=== PATIENT | female | born 1990 | race Caucasian/White ===

== ENCOUNTER 2016-04-05 22:59 | Inpatient (IN) | payer OTHER ==
[~2016-04-05] VITALS: Ht 149.9 cm; Wt 49.7 kg
[~2016-04-05 22:59] MED LIST: ADVIL,NUPRIN,M200 MG PO; AMOXICILLI400 MG/5 M; AMOXICILLIN500 MG PO; BACTRIM,SEPT1 TABLET PO; CIPRO500 MG PO; CLARITIN-D 121 EACH PO; CLONIDINE HCL0.1 MG PO; CONSTULOSE10 GM/15 M PO; FLAGYL500 MG PO; FLEXERIL10 MG PO; FLINTSTONES GU1 EACH PO; FLINTSTONES1 EACH PO; Flintstones PO; KEFLEX500 MG PO; KLONOPIN1 MG PO; MACROBID100 MG PO; MIRALAX17 GM PO; MOBIC7.5 MG PO; MOTRIN600 MG PO; MOTRIN800 MG PO; NAPROSYN500 MG PO; NAPROXEN500 MG PO; ONDANSETRON HCL4 M1; OXYCODONE-APAP1 EACH; PEPCID AC20 MG PO; PERCOCET 5/31 TABLET PO; PROZAC WEEKLY 990 MG PO; PYRIDIUM100 MG PO; PYRIDIUM200 MG PO; Prefera-OB Plus DHA PO; TESSALON PERLE100 MG PO; TRAMADOL HCL50 MG PO; TRAZODONE HCL50 MG PO; TYLENOL325 M1 PO; ULTRAM50 MG PO; UNISOM50 MG PO; ZITHROMAX250 MG PO; ZOFRAN ODT4 MG PO; ZOFRAN4 MG PO; ~No Medications
[2016-04-05 23:25] LABS: HEMATOCRIT 38.1 % (36.0-46.0); MCH 29.8 PG (29.0-34.0); MCHC 34.1 G/DL (30.0-36.0); MCV 87.4 FL (83-99); MEAN PLAT.VOLUME 9.1 uM^3 (9.5-12.4); PLATELET COUNT 386 K/uL (156-360); RBC DIS.WIDTH-CV 12.5 % (11.8-14.6); RBC DIS.WIDTH-SD 38.8 % (39-53); RED BLOOD COUNT 4.36 M/uL (3.80-5.20); WHITE BLOOD COUNT 8.9 K/uL (4.1-10.2)
[2016-04-05 23:32] LABS: CHLORIDE 105 mEq/L (99-109); POTASSIUM 3.6 mEq/L (3.7-5.4); SODIUM 141 mEq/L (136-147)
[2016-04-05 23:34] LABS: GLUCOSE 73 mg/dL (70-99)
[2016-04-05 23:36] LABS: ANION GAP 8 MEQ/L (2-14)
[2016-04-05 23:37] LABS: SERUM ETHYL ALCOHOL < 10 mg/dL
[2016-04-05 23:38] LABS: GFR ESTIMATE (CALCULATED) > 59 mL/min/
[2016-04-05 23:39] LABS: UREA NITROGEN (BUN) 10 mg/dL (9-23)
[2016-04-05 23:59] LABS: AMPHETAMINE NEGATIVE (500 ng/mL); COCAINE PRESUMPTIVE POSITIVE (150 ng/mL); METHAMPHETAMINE NEGATIVE (500 ng/mL); OPIATES (MORPHINE) PRESUMPTIVE POSITIVE (100 ng/mL); PHENCYCLIDINE NEGATIVE (25 ng/mL); THC CANNABINOIDS NEGATIVE (50 ng/mL)
[2016-04-06] LABS: ADD MEDTOX COMMENT Y; BARBITURATES NEGATIVE (200 ng/mL); BENZODIAZEPINES PRESUMPTIVE POSITIVE (150 ng/mL); INTERNAL CONTROLS VALID? YES; METHADONE NEGATIVE (200 ng/mL); OXYCODONE PRESUMPTIVE POSITIVE (100 ng/mL); PROPOXYPHENE NEGATIVE (300 ng/mL); TRICYCLIC ANTIDEPRESSANTS NEGATIVE (300 ng/mL)
[2016-04-06] MEDS ORDERED: CLONAZEPAM0.5 MG PO (00:39)
[2016-04-06] MEDS ORDERED: CITALOPRAM HBR10 MG PO (00:39)
[2016-04-06 01:52] VITALS: BP 123/84
[2016-04-06 02:02] LABS: BENZODIAZEPINES, URINE SCREEN POSITIVE (200 ng/mL)
[2016-04-06] MEDS ORDERED: CLEOCIN300 MG PO (06:34)
[2016-04-06 07:44] VITALS: BP 124/57
[2016-04-06 15:26] VITALS: BP 86/42
[2016-04-06 18:22] VITALS: BP 100/54
[2016-04-07 07:44] VITALS: BP 99/58
[2016-04-07 15:19] VITALS: BP 88/43
[2016-04-08 07:50] VITALS: BP 102/53
[2016-04-08 15:59] VITALS: BP 96/45
[2016-04-09 07:39] VITALS: BP 101/54
[2016-04-09] MEDS ORDERED: PROZAC10 MG PO (11:48)
== END 2016-04-09 13:08 | disposition home or self-care (01) | DRG 881 ==
LOC: EME 22:59 → 1WEST 04-06 00:29 → EDOF 04-06 00:29 → 1WEST 04-06 01:44
PROC: HZ2ZZZZ Detoxification Services for Substance Abuse Treatment (ICD-10-PCS; principal; 2016-04-06)
DX: F32.9 Major depressive disorder, single episode, unspecified (principal); R45.851 Suicidal ideations; F11.23 Opioid dependence with withdrawal; F14.10 Cocaine abuse, uncomplicated; E78.5 Hyperlipidemia, unspecified
CPT/HCPCS: 80048; 84999; 85027; 90839; 97150 GO; 97165 GO; 99281; 99284; G0480; J0574; Q0177

== ENCOUNTER 2016-08-31 07:47 | Emergency (ER) | payer OTHER ==
[~2016-08-31] VITALS: Ht 149.9 cm; Wt 58.8 kg
[~2016-08-31 07:47] MED LIST changes: +CITALOPRAM HBR10 MG PO; +CLEOCIN300 MG PO; +CLONAZEPAM0.5 MG PO; +PROZAC10 MG PO
[2016-08-31 08:47] LABS: HEMATOCRIT 34.8 % (36.0-46.0); MCH 29.7 PG (29.0-34.0); MCHC 34.5 G/DL (30.0-36.0); MCV 86.1 FL (83-99); MEAN PLAT.VOLUME 8.9 uM^3 (9.5-12.4); PLATELET COUNT 339 K/uL (156-360); RBC DIS.WIDTH-CV 12.4 % (11.8-14.6); RBC DIS.WIDTH-SD 39.3 % (39-53); RED BLOOD COUNT 4.04 M/uL (3.80-5.20); WHITE BLOOD COUNT 15.9 K/uL (4.1-10.2)
[2016-08-31 08:51] LABS: CHLORIDE 108 mEq/L (99-109); POTASSIUM 4.1 mEq/L (3.7-5.4); SODIUM 137 mEq/L (136-147)
[2016-08-31 08:54] LABS: ANION GAP 7 MEQ/L (2-14)
[2016-08-31 08:55] LABS: TOTAL BILIRUBIN 0.4 mg/dL (0.0-1.0)
[2016-08-31 08:56] LABS: ALKALINE PHOSPHATASE 89 IU/L (3-129)
[2016-08-31 08:57] LABS: GFR ESTIMATE (CALCULATED) > 59 mL/min/
[2016-08-31 08:58] LABS: UREA NITROGEN (BUN) 15 mg/dL (9-23)
[2016-08-31 09:00] LABS: LIPASE 4 U/L (1.0-51.0)
[2016-08-31 09:06] LABS: QUANTITATIVE HCG < 4.0 MIU/ML
[2016-08-31 09:11] LABS: GLUCOSE 113 mg/dL (70-99)
[2016-08-31 09:30] LABS: ADD MIUA? YES; BILIRUBIN NEGATIVE; BLOOD MODERATE; COLOR YELLOW ((YELLOW)); GLUCOSE (STRIP) NEGATIVE; KETONES NEGATIVE; LEUKOCYTES NEGATIVE; NITRITE NEGATIVE; PROTEIN (STRIP) 30; UROBILINOGEN 0.2 MG/DL (0.2-1.0)
[2016-08-31 09:37] LABS: BACTERIA RARE /HPF; EPITHELIAL CELLS RARE /HPF; HYALINE CASTS 0-5 /LPF; MUCUS 2+ /LPF; RED BLOOD CELLS 0-5 /HPF (0-5); UCUL ADDED? NO; WHITE BLOOD CELLS 0-5 /HPF (0-5)
[2016-08-31] MEDS ORDERED: ULTRAM50 MG PO (11:54)
[2016-08-31] MEDS ORDERED: ZOFRAN ODT4 MG PO (11:54)
[2016-08-31] MEDS ORDERED: MACROBID100 MG PO (11:54)
[2016-08-31 12:10] VITALS: BP 122/57
== END 2016-08-31 12:11 | disposition home or self-care (01) ==
LOC: EME 07:47
PROVIDERS: Nurse Practitioner Family
DX: N39.0 Urinary tract infection, site not specified (principal); D72.829 Elevated white blood cell count, unspecified; N94.89 Other specified conditions associated with female genital organs and menstrual cycle; E78.5 Hyperlipidemia, unspecified
CPT/HCPCS: 74177; 80053; 81003; 83690; 84702; 85027; 87086; 99281; 99284; J1885; J2405; J7030

== ENCOUNTER 2016-10-26 13:33 | Emergency (ER) | payer OTHER ==
[~2016-10-26] VITALS: Ht 149.9 cm; Wt 60.6 kg
[2016-10-26 14:24] VITALS: BP 118/85
== END 2016-10-26 14:25 | disposition home or self-care (01) ==
LOC: EME 13:33
DX: H11.32 Conjunctival hemorrhage, left eye (principal)
CPT/HCPCS: 99281; 99283

== ENCOUNTER 2016-12-01 14:44 | Emergency (ER) | payer OTHER ==
[2016-12-01] MEDS ORDERED: ZOFRAN ODT4 MG PO (22:40)
== END 2016-12-01 15:07 | disposition left against medical advice (07) ==
LOC: EME 14:44
DX: O26.891 Other specified pregnancy related conditions, first trimester (principal); R10.9 Unspecified abdominal pain; Z3A.01 Less than 8 weeks gestation of pregnancy; Z53.21 Procedure and treatment not carried out due to patient leaving prior to being seen by health care provider

== ENCOUNTER 2016-12-01 17:55 | Emergency (ER) | payer OTHER ==
[~2016-12-01] VITALS: Ht 149.9 cm; Wt 58.0 kg
[2016-12-01 19:46] LABS: HEMATOCRIT 40.1 % (36.0-46.0); MCH 28.1 PG (29.0-34.0); MCHC 33.4 G/DL (30.0-36.0); MCV 84.1 FL (83-99); MEAN PLAT.VOLUME 8.9 uM^3 (9.5-12.4); PLATELET COUNT 367 K/uL (156-360); RBC DIS.WIDTH-CV 13.3 % (11.8-14.6); RBC DIS.WIDTH-SD 41.2 % (39-53); RED BLOOD COUNT 4.77 M/uL (3.80-5.20); WHITE BLOOD COUNT 7.1 K/uL (4.1-10.2)
[2016-12-01 19:54] LABS: CHLORIDE 109 mEq/L (99-109); POTASSIUM 3.9 mEq/L (3.7-5.4); SODIUM 140 mEq/L (136-147)
[2016-12-01 19:56] LABS: GLUCOSE 106 mg/dL (70-99)
[2016-12-01 19:58] LABS: ANION GAP 9 MEQ/L (2-14); TOTAL BILIRUBIN 0.5 mg/dL (0.0-1.0)
[2016-12-01 20:00] LABS: ALKALINE PHOSPHATASE 93 IU/L (3-129); GFR ESTIMATE (CALCULATED) > 59 mL/min/
[2016-12-01 20:00] LABS: ADD MIUA? YES; BILIRUBIN NEGATIVE; BLOOD NEGATIVE; COLOR YELLOW ((YELLOW)); GLUCOSE (STRIP) NEGATIVE; KETONES NEGATIVE; LEUKOCYTES NEGATIVE; NITRITE NEGATIVE; PROTEIN (STRIP) 30; SPECIFIC GRAVITY 1.034 (1.000-1.030); UROBILINOGEN 0.2 MG/DL (0.2-1.0)
[2016-12-01 20:01] LABS: UREA NITROGEN (BUN) 14 mg/dL (9-23)
[2016-12-01 20:05] LABS: BACTERIA RARE /HPF; EPITHELIAL CELLS 1+ /HPF; MUCUS 2+ /LPF; RED BLOOD CELLS 0-5 /HPF (0-5); UCUL ADDED? NO; WHITE BLOOD CELLS 0-5 /HPF (0-5)
[2016-12-01 20:09] LABS: QUANTITATIVE HCG 116.2 MIU/ML
[2016-12-01 20:16] LABS: AMPHETAMINE NEGATIVE (500 ng/mL); BARBITURATES NEGATIVE (200 ng/mL); BENZODIAZEPINES NEGATIVE (150 ng/mL); COCAINE NEGATIVE (150 ng/mL); INTERNAL CONTROLS VALID? YES; METHADONE NEGATIVE (200 ng/mL); METHAMPHETAMINE NEGATIVE (500 ng/mL); OPIATES (MORPHINE) NEGATIVE (100 ng/mL); OXYCODONE NEGATIVE (100 ng/mL); PHENCYCLIDINE NEGATIVE (25 ng/mL); PROPOXYPHENE NEGATIVE (300 ng/mL); THC CANNABINOIDS NEGATIVE (50 ng/mL); TRICYCLIC ANTIDEPRESSANTS NEGATIVE (300 ng/mL)
[2016-12-01] MEDS ORDERED: ZOFRAN ODT4 MG PO (22:40)
[2016-12-01 22:41] VITALS: BP 117/69
== END 2016-12-01 22:42 | disposition home or self-care (01) ==
LOC: EME 17:55
PROVIDERS: Nurse Practitioner Family
DX: O26.891 Other specified pregnancy related conditions, first trimester (principal); R10.2 Pelvic and perineal pain; E78.5 Hyperlipidemia, unspecified
CPT/HCPCS: 76801; 80053; 81003; 84702; 85027; 99281; 99283

== ENCOUNTER 2016-12-31 14:06 | Emergency (ER) | payer OTHER ==
[~2016-12-31] VITALS: Ht 149.9 cm; Wt 60.3 kg
[2016-12-31 15:18] LABS: HEMATOCRIT 35.4 % (36.0-46.0); MCH 28.5 PG (29.0-34.0); MCHC 33.6 G/DL (30.0-36.0); MCV 84.7 FL (83-99); RBC DIS.WIDTH-CV 13.7 % (11.8-14.6); RBC DIS.WIDTH-SD 42.9 % (39-53); RED BLOOD COUNT 4.18 M/uL (3.80-5.20); WHITE BLOOD COUNT 8.9 K/uL (4.1-10.2)
[2016-12-31 15:24] LABS: CHLORIDE 105 mEq/L (99-109); POTASSIUM 3.6 mEq/L (3.7-5.4); SODIUM 138 mEq/L (136-147)
[2016-12-31 15:26] LABS: GLUCOSE 102 mg/dL (70-99)
[2016-12-31 15:27] LABS: ANION GAP 8 MEQ/L (2-14)
[2016-12-31 15:28] LABS: TOTAL BILIRUBIN 0.8 mg/dL (0.0-1.0)
[2016-12-31 15:30] LABS: ALKALINE PHOSPHATASE 77 IU/L (3-129); GFR ESTIMATE (CALCULATED) > 59 mL/min/
[2016-12-31 15:31] LABS: UREA NITROGEN (BUN) 8 mg/dL (9-23)
[2016-12-31 15:50] LABS: ADD MIUA? YES; BILIRUBIN NEGATIVE; BLOOD NEGATIVE; COLOR AMBER ((YELLOW)); GLUCOSE (STRIP) NEGATIVE; KETONES 20; LEUKOCYTES NEGATIVE; NITRITE NEGATIVE; PROTEIN (STRIP) 100; SPECIFIC GRAVITY 1.034 (1.000-1.030); UROBILINOGEN 0.2 MG/DL (0.2-1.0)
[2016-12-31 16:11] LABS: QUANTITATIVE HCG 161014.9 MIU/ML
[2016-12-31 16:30] LABS: BACTERIA 1+ /HPF; EPITHELIAL CELLS 3+ /HPF; MUCUS 4+ /LPF; RED BLOOD CELLS 0-5 /HPF (0-5); UCUL ADDED? NO; WHITE BLOOD CELLS 0-5 /HPF (0-5)
[2016-12-31 17:03] LABS: MEAN PLAT.VOLUME 8.8 uM^3 (9.5-12.4); PLAT.SUFFICIENCY ADEQUATE
[2016-12-31 17:14] LABS: PLATELET COUNT 248 K/uL (156-360)
[2016-12-31] MEDS ORDERED: ZOFRAN ODT4 MG PO (18:15)
[2016-12-31 18:28] VITALS: BP 117/65
== END 2016-12-31 18:30 | disposition home or self-care (01) ==
LOC: EME 14:06
DX: O21.9 Vomiting of pregnancy, unspecified (principal); Z3A.01 Less than 8 weeks gestation of pregnancy; E78.5 Hyperlipidemia, unspecified; F32.9 Major depressive disorder, single episode, unspecified
CPT/HCPCS: 80053; 81003; 84702; 85027; 99281; 99284; J2405; J7030

== ENCOUNTER 2017-05-18 12:26 | Emergency (ER) | payer OTHER ==
[~2017-05-18] VITALS: Ht 149.9 cm; Wt 66.4 kg
[2017-05-18 14:33] LABS: CHLORIDE 100 MEQ/L (99-109); POTASSIUM 3.5 MEQ/L (3.7-5.4); SODIUM 134 MEQ/L (136-147)
[2017-05-18 14:39] LABS: CREATININE 0.5 MG/DL (0.6-1.3); GFR ESTIMATE (CALCULATED) > 59 mL/min/; GLUCOSE 68 mg/dL (70-99); UREA NITROGEN (BUN) 5 mg/dL (9-23)
[2017-05-18 15:27] LABS: APPEARANCE SL.HAZY ((CLEAR)); BILIRUBIN NEGATIVE; BLOOD NEGATIVE; COLOR AMBER ((YELLOW)); GLUCOSE (STRIP) NEGATIVE; KETONES NEGATIVE; LEUKOCYTES NEGATIVE; NITRITE NEGATIVE; PROTEIN (STRIP) 30; SPECIFIC GRAVITY 1.021 (1.000-1.030)
[2017-05-18 15:41] LABS: BACTERIA RARE /HPF; EPITHELIAL CELLS RARE /HPF; MUCUS 2+ /LPF; RED BLOOD CELLS 0-5 /HPF (0-5); WHITE BLOOD CELLS 0-5 /HPF (0-5)
[2017-05-18] MEDS ORDERED: ZOFRAN ODT4 MG PO (15:58)
[2017-05-18 16:13] VITALS: BP 110/70
== END 2017-05-18 16:15 | disposition home or self-care (01) ==
LOC: EME 12:26
PROVIDERS: Physician Assistant
DX: O21.2 Late vomiting of pregnancy (principal); Z3A.27 27 weeks gestation of pregnancy; O99.512 Diseases of the respiratory system complicating pregnancy, second trimester; J34.89 Other specified disorders of nose and nasal sinuses; J02.9 Acute pharyngitis, unspecified; R10.9 Unspecified abdominal pain; O26.892 Other specified pregnancy related conditions, second trimester; O99.342 Other mental disorders complicating pregnancy, second trimester; F32.9 Major depressive disorder, single episode, unspecified; E78.5 Hyperlipidemia, unspecified
CPT/HCPCS: 80048; 81003; 99281; 99284; J7030

== ENCOUNTER 2017-06-29 01:59 | Inpatient (IN) | payer OTHER ==
[2017-06-29] VITALS (43 sets, daily range): BP systolic 76–138; BP diastolic 39–87
[~2017-06-29] VITALS: Ht 149.9 cm; Wt 68.5 kg
[2017-06-29 02:58] LABS: BASOPHIL (%) 0.2 % (0-1); EOSINOPHIL (%) 0.5 % (0-5); EOSINOPHIL COUNT 0.1 K/uL (0-0.3); HEMATOCRIT 30.2 % (36.0-46.0); HEMOGLOBIN 10.3 G/DL (11.9-15.5); IMMATURE GRANULOCYTE (%) 0.9 % (0.0-0.7); LYMPHOCYTE (%) 10.6 % (15-42); LYMPHOCYTE COUNT 1.4 K/uL (1.0-2.8); MCH 29.7 PG (29.0-34.0); MCHC 34.1 G/DL (30.0-36.0); MONOCYTE (%) 6.2 % (3-12); MONOCYTE COUNT 0.8 K/uL (0-0.8); NEUTROPHIL (%) 81.6 % (45-76); NEUTROPHIL COUNT 10.9 K/uL (1.8-6.4); PLATELET COUNT 248 K/uL (156-360); RBC DIS.WIDTH-CV 14.8 % (11.8-14.6); RBC DIS.WIDTH-SD 47.4 % (39-53); RED BLOOD COUNT 3.47 M/uL (3.80-5.20); WHITE BLOOD COUNT 13.4 K/uL (4.1-10.2)
[2017-06-29 03:28] LABS: AMPHETAMINE NEGATIVE (500 ng/mL); BARBITURATES NEGATIVE (200 ng/mL); BENZODIAZEPINES PRESUMPTIVE POSITIVE (150 ng/mL); BUPRENORPHINE PRESUMPTIVE POSITIVE (10 ng/mL); COCAINE PRESUMPTIVE POSITIVE (150 ng/mL); METHADONE NEGATIVE (200 ng/mL); METHAMPHETAMINE NEGATIVE (500 ng/mL); OPIATES (MORPHINE) NEGATIVE (100 ng/mL); OXYCODONE PRESUMPTIVE POSITIVE (100 ng/mL); PHENCYCLIDINE NEGATIVE (25 ng/mL); PROPOXYPHENE NEGATIVE (300 ng/mL); THC CANNABINOIDS NEGATIVE (50 ng/mL); TRICYCLIC ANTIDEPRESSANTS NEGATIVE (300 ng/mL)
[2017-06-29 03:53] LABS: BENZODIAZEPINES, URINE SCREEN POSITIVE (200 ng/mL)
[2017-06-29 06:57] LABS: BASOPHIL (%) 0.3 % (0-1); EOSINOPHIL (%) 0.2 % (0-5); HEMATOCRIT 28.4 % (36.0-46.0); HEMOGLOBIN 9.3 G/DL (11.9-15.5); IMMATURE GRANULOCYTE (%) 1.5 % (0.0-0.7); LYMPHOCYTE (%) 8.9 % (15-42); MCH 28.9 PG (29.0-34.0); MCHC 32.7 G/DL (30.0-36.0); MCV 88.2 FL (83-99); MONOCYTE (%) 2.7 % (3-12); MONOCYTE COUNT 0.3 K/uL (0-0.8); NEUTROPHIL (%) 86.4 % (45-76); NEUTROPHIL COUNT 9.2 K/uL (1.8-6.4); PLATELET COUNT 230 K/uL (156-360); RBC DIS.WIDTH-SD 48.1 % (39-53); RED BLOOD COUNT 3.22 M/uL (3.80-5.20); WHITE BLOOD COUNT 10.7 K/uL (4.1-10.2)
[2017-06-29 07:08] LABS: FIBRINOGEN 253 mg/dL (150-450)
[2017-06-29 07:10] LABS: PTT 24.2 SEC (25-37)
[2017-06-29 07:23] LABS: ALBUMIN 2.5 G/DL (3.2-4.8); ALKALINE PHOSPHATASE 174 IU/L (3-129); ALT (GPT) 110 IU/L (3-49); AST (GOT) 127 IU/L (2-34); CHLORIDE 101 MEQ/L (99-109); CREATININE 0.6 MG/DL (0.6-1.3); GFR ESTIMATE (CALCULATED) > 59 mL/min/; GLUCOSE 108 mg/dL (70-99); POTASSIUM 4.3 MEQ/L (3.7-5.4); SODIUM 131 MEQ/L (136-147); TOTAL PROTEIN 5.5 G/DL (6.4-8.3); UREA NITROGEN (BUN) 6 mg/dL (9-23)
[2017-06-29 12:46] LABS: BASOPHIL (%) 0.1 % (0-1); EOSINOPHIL (%) 0 % (0-5); HEMATOCRIT 28.3 % (36.0-46.0); HEMOGLOBIN 9.5 G/DL (11.9-15.5); IMMATURE GRANULOCYTE (%) 1.3 % (0.0-0.7); LYMPHOCYTE (%) 8.7 % (15-42); MCH 29.4 PG (29.0-34.0); MCHC 33.6 G/DL (30.0-36.0); MCV 87.6 FL (83-99); MONOCYTE (%) 2.4 % (3-12); MONOCYTE COUNT 0.3 K/uL (0-0.8); NEUTROPHIL (%) 87.5 % (45-76); NEUTROPHIL COUNT 9.8 K/uL (1.8-6.4); PLATELET COUNT 237 K/uL (156-360); RBC DIS.WIDTH-CV 14.9 % (11.8-14.6); RED BLOOD COUNT 3.23 M/uL (3.80-5.20); WHITE BLOOD COUNT 11.2 K/uL (4.1-10.2)
[2017-06-29] MEDS ORDERED: BUPRENORPHINE HC8 MG SL (18:19)
[2017-06-30 06:40] LABS: BASOPHIL (%) 0.1 % (0-1); EOSINOPHIL (%) 0.1 % (0-5); HEMATOCRIT 19.8 % (36.0-46.0); IMMATURE GRANULOCYTE (%) 1.6 % (0.0-0.7); LYMPHOCYTE (%) 10.5 % (15-42); LYMPHOCYTE COUNT 1.9 K/uL (1.0-2.8); MCH 28.9 PG (29.0-34.0); MCHC 32.8 G/DL (30.0-36.0); MONOCYTE COUNT 1.2 K/uL (0-0.8); NEUTROPHIL (%) 80.7 % (45-76); NEUTROPHIL COUNT 14.2 K/uL (1.8-6.4); NRBC (%) 0.1 /100 WBC (0-0); PLATELET COUNT 269 K/uL (156-360); RBC DIS.WIDTH-CV 15.1 % (11.8-14.6); RBC DIS.WIDTH-SD 48.7 % (39-53); WHITE BLOOD COUNT 17.6 K/uL (4.1-10.2)
[2017-06-30 06:45] VITALS: BP 105/53
[2017-06-30 06:52] LABS: HEMOGLOBIN 6.5 G/DL (11.9-15.5); RED BLOOD COUNT 2.25 M/uL (3.80-5.20)
[2017-06-30 07:01] VITALS: BP 98/50
[2017-06-30 07:03] VITALS: BP 94/51
[2017-06-30 13:11] VITALS: BP 114/56
[2017-06-30 13:12] VITALS: BP 92/53
[2017-06-30 15:23] VITALS: BP 122/68
[2017-07-01] MEDS ORDERED: FEOSOL325 MG PO (10:15)
[2017-07-01] MEDS ORDERED: MOTRIN800 MG PO (10:15)
== END 2017-07-01 18:06 | disposition home or self-care (01) | DRG 774 ==
LOC: LDRP-OP 01:59 → 2WEST 02:00 → LDRP-OP 09-13 11:07
PROVIDERS: Obstetrics & Gynecology
PROC: 3E0R3BZ Introduction of Anesthetic Agent into Spinal Canal, Percutaneous Approach (ICD-10-PCS; principal; 2017-06-29)
PROC: 10907ZC Drainage of Amniotic Fluid, Therapeutic from Products of Conception, Via Natural or Artificial Opening (ICD-10-PCS; principal; 2017-06-29)
PROC: 00HU33Z Insertion of Infusion Device into Spinal Canal, Percutaneous Approach (ICD-10-PCS; principal; 2017-06-29)
PROC: 10E0XZZ Delivery of Products of Conception, External Approach (ICD-10-PCS; principal; 2017-06-29)
DX: O45.93 Premature separation of placenta, unspecified, third trimester (principal); D62 Acute posthemorrhagic anemia; O60.10X0 Preterm labor with preterm delivery, unspecified trimester, not applicable or unspecified; Z37.0 Single live birth; Z3A.33 33 weeks gestation of pregnancy; O99.02 Anemia complicating childbirth; B18.2 Chronic viral hepatitis C; O98.42 Viral hepatitis complicating childbirth; F11.20 Opioid dependence, uncomplicated; O99.323 Drug use complicating pregnancy, third trimester; O99.344 Other mental disorders complicating childbirth; F41.9 Anxiety disorder, unspecified; F32.9 Major depressive disorder, single episode, unspecified
CPT/HCPCS: 76815; 80053; 84999; 85025; 85025 91; 85384; 85610; 85730; 86850; 86900; 86901; 88307; C1755; J0571; J0702; J2540; J3010; J3475; J7050; J7120

== ENCOUNTER 2017-11-16 20:37 | Emergency (ER) | payer OTHER ==
[~2017-11-16] VITALS: Ht 149.9 cm; Wt 60.5 kg
[~2017-11-16 20:37] MED LIST changes: +BUPRENORPHINE HC8 MG SL; +FEOSOL325 MG PO
[2017-11-16] MEDS ORDERED: AMOXICILLIN500 MG PO (21:33)
[2017-11-16 21:43] VITALS: BP 137/96
== END 2017-11-16 21:43 | disposition home or self-care (01) ==
LOC: EME 20:37
DX: H66.92 Otitis media, unspecified, left ear (principal); F17.200 Nicotine dependence, unspecified, uncomplicated; F32.9 Major depressive disorder, single episode, unspecified; F41.9 Anxiety disorder, unspecified
CPT/HCPCS: 99281; 99283